=== PATIENT | female | born 1975 | race Caucasian/White ===

== ENCOUNTER 2018-12-31 09:27 | Emergency (ER) | payer BC ==
[~2018-12-31] VITALS: Ht 165.1 cm; Wt 70.0 kg
[~2018-12-31 09:27] MED LIST: CONCEPT DHA PO; CYCLOBENZAPR10 MG OR; FLEXERIL OR; LORTAB5 PO; MECLIZINE25 MG PO; NAPROSYN500 MG OR; NAPROXEN500 MG OR; NO HOME MEDS; PRENA1/QUATREFOLIC; ULTRAM50 MG OR; VICODIN1 TAB PO
[2018-12-31 09:59] LABS: HEMATOCRIT 32.3 % (37.0-47.0); HEMOGLOBIN 10.3 g/dl (12.0-16.0); IMMATURE GRANULOCYTES 0.2 % (0.0-5.0); MEAN CORPUSCULAR HGB 28.7 pG CALC (26.0-32.0); MEAN CORPUSCULAR HGB CONC 31.9 g/L CALC (32.0-36.0); NEUT# 2.72 thou/uL (2.00-7.15); RED BLOOD COUNT 3.59 mill/uL (4.20-5.60); RED CELL DISTRI WIDTH 14.1 % (11.5-15.5)
[2018-12-31 10:17] LABS: ALBUMIN 4.4 g/dL (3.2-5.0); ALKALINE PHOSPHATASE 61 u/l (38-126); AMYLASE 48 u/l (30-110); ANION GAP 14 (6-22 (CALC)); BILIRUBIN, TOTAL 0.5 mg/dL (0.0-1.4); BUN 14 mg/dL (7-17); BUN/CREATININE RATIO 25 (12-20 (CALC)); CARBON DIOXIDE 25 mmol/l (22-30); CHLORIDE 107 mmol/l (95-108); CREATININE 0.6 mg/dL (0.5-1.0); GFR > 60 ML/MIN (>=60 (CALC)); GFR FOR AFR.AMER. > 60 ML/MIN (>=60 (CALC)); LIPASE 120 u/l (23-300); POTASSIUM 3.7 mmol/l (3.5-5.1); SGOT/AST 20 u/l (14-36); SODIUM 142 mmol/l (137-146); TOTAL PROTEIN 7.5 g/dL (6.3-8.2)
[2018-12-31 10:28] LABS: MYOGLOBIN 43 ng/mL (0 - 62)
[2018-12-31 10:50] VITALS: BP 140/80
[2018-12-31 11:19] LABS: URINE BILIRUBIN - DIPSTICK NEGATIVE (NEGATIVE); URINE BLOOD DIPSTICK NEGATIVE (NEGATIVE); URINE COLOR YELLOW; URINE GLUCOSE - DIPSTICK NEGATIVE (NEGATIVE); URINE KETONE NEGATIVE (NEGATIVE); URINE LEUK ESTERASE NEGATIVE (NEGATIVE); URINE NITRITE - DIPSTICK NEGATIVE (Negative); URINE PH 6.5 (4.5-8.0); URINE PROTEIN - DIPSTICK NEGATIVE (NEG-TRACE); URINE UROBILINOGEN - DIPSTICK 0.2 E.U./dL (0.2)
[2018-12-31] MEDS ORDERED: NAPROXEN500 MG PO (11:31)
== END 2018-12-31 11:48 | disposition home or self-care (01) | DRG 313 ==
LOC: ED 09:27
PROVIDERS: Emergency Medicine
DX: R07.89 Other chest pain (principal)